=== PATIENT | female | born 1990 | race Caucasian/White ===

== ENCOUNTER 2017-06-25 00:26 | Emergency (ER) | payer MEDICAID, OTHER ==
[~2017-06-25] VITALS: Ht 154.9 cm; Wt 49.0 kg
[~2017-06-25 00:26] MED LIST: FERR325E14 PO; PREN-385 PO
[2017-06-25 00:31] VITALS: BP 112/53
[2017-06-25 01:20] LABS: BASOPHILS # (AUTO) 0.2 K/uL (0.00-0.22); BASOPHILS % (AUTO) 2.5 % (0.0-2.0); EOSINOPHILS # (AUTO) 0.1 K/uL (0-0.4); EOSINOPHILS % (AUTO) 0.7 % (0.0-4.0); HEMATOCRIT 36.1 % (36-48); HEMOGLOBIN 11.5 g/dL (12.0-16.0); LYMPHOCYTES # (AUTO) 1.9 K/uL (2.5-16.5); MEAN CORPUSCULAR HEMOGLOBIN 29 pg (27-31); MEAN CORPUSCULAR HGB CONC 32 g/dL (33-37); MEAN CORPUSCULAR VOLUME 92 fL (80-94); MONOCYTES # (AUTO) 0.6 K/uL (0.8-1.0); MONOCYTES % (AUTO) 6.7 % (1.7-9.3); NEUTROPHILS # (AUTO) 6.5 K/uL (1.8-7.7); NEUTROPHILS % (AUTO) 70.1 % (42.2-75.2); PLATELET COUNT (AUTO) 315 K/uL (140-450); RED BLOOD CELL COUNT(AUTO) 3.93 MIL/uL (4.20-5.40); RED CELL DISTRIBUTION WIDTH 12.7 % (11.6-13.7); WHITE BLOOD COUNT (AUTO) 9.3 K/uL (4.8-10.8)
[2017-06-25 01:33] LABS: ANION GAP 10.8 (8-16); CREATININE 0.6 mg/dL (0.6-1.3); POTASSIUM 3.8 mmol/L (3.5-5.1)
[2017-06-25 01:46] LABS: ALBUMIN 2.8 g/dL (3.4-5.0); THYROID STIMULATING HORMONE 0.78 uIU/mL (0.34-3.74); TOTAL BILIRUBIN 0.2 mg/dL (0.0-1.0)
[2017-06-25 02:48] VITALS: BP 112/53
== END 2017-06-25 02:48 | disposition home or self-care (01) ==
LOC: MED 00:26
DX: O26.892 Other specified pregnancy related conditions, second trimester (principal); R10.2 Pelvic and perineal pain; R10.9 Unspecified abdominal pain; Z79.899 Other long term (current) drug therapy
CPT/HCPCS: 36415; 76705; 76805; 80053; 81002; 81025; 84443; 84702; 85025; 85610; 85730; 86900; 86901; 99285; Q0092

== ENCOUNTER 2017-09-17 15:40 | Observation (INO) | payer MEDICAID ==
[~2017-09-17] VITALS: Ht 152.4 cm; Wt 56.7 kg
[2017-09-17 16:15] VITALS: BP 143/84
[2017-09-17] MEDS ORDERED: BETAMETH ACET/BETAMETH NA PH 30 MG/5 ML VIAL IM SCH (16:50)
[2017-09-17] MEDS ORDERED: AMPICILLIN 2,000 MG VIAL ONE (17:00)
[2017-09-17] MEDS ORDERED: BETAMETH ACET/BETAMETH NA PH 30 MG/5 ML VIAL IM ONE (17:00)
[2017-09-17] MEDS ORDERED: TERBUTALINE 1 MG/ML VIAL SUBQ SCH (17:35)
[2017-09-17] MEDS: LACTATED RINGERS 1,000 ML IV SCH (17:39)
[2017-09-17] MEDS: AMPICILLIN 2,000 MG in NACL 0.9% 100 ML IV SCH (17:41)
[2017-09-17] MEDS ORDERED: TERBUTALINE 1 MG/ML VIAL SUBQ ONE (17:44)
[2017-09-17 18:22] LABS: BASOPHILS # (AUTO) 0.1 K/uL (0.00-0.22); BASOPHILS % (AUTO) 1.2 % (0.0-2.0); EOSINOPHILS % (AUTO) 0.3 % (0.0-4.0); HEMATOCRIT 36.8 % (36-48); HEMOGLOBIN 12.6 g/dL (12.0-16.0); LYMPHOCYTES # (AUTO) 2.1 K/uL (2.5-16.5); LYMPHOCYTES % (AUTO) 20.4 % (20.5-51.1); MEAN CORPUSCULAR HEMOGLOBIN 31 pg (27-31); MEAN CORPUSCULAR HGB CONC 34 g/dL (33-37); MEAN CORPUSCULAR VOLUME 91 fL (80-94); MONOCYTES # (AUTO) 0.9 K/uL (0.8-1.0); MONOCYTES % (AUTO) 8.7 % (1.7-9.3); NEUTROPHILS # (AUTO) 7.1 K/uL (1.8-7.7); NEUTROPHILS % (AUTO) 69.4 % (42.2-75.2); PLATELET COUNT (AUTO) 239 K/uL (140-450); RED BLOOD CELL COUNT(AUTO) 4.03 MIL/uL (4.20-5.40); RED CELL DISTRIBUTION WIDTH 11.9 % (11.6-13.7); WHITE BLOOD COUNT (AUTO) 10.2 K/uL (4.8-10.8)
[2017-09-17 18:24] LABS: APPEARANCE,URINE CLEAR (CLEAR); BILIRUBIN,URINE NEGATIVE (NEGATIVE); BLOOD, URINE TRACE-I (NEGATIVE); COLOR,URINE YELLOW (YELLOW); LEUKOCYTE ESTERASE ,URINE NEGATIVE (NEGATIVE); NITRITE, URINE NEGATIVE (NEGATIVE); UGLUCOSE NEGATIVE (NEGATIVE)
[2017-09-17 18:30] LABS: BARBITURATE, URINE NEG. ng/ml (NEG <=200); BENZODIAZEPINE, URINE NEG. ng/mL (NEG <=200); CANNABINOID, URINE NEG. ng/mL (NEG <=50); COCAINE, URINE NEG. ng/mL (NEG <=300); OPIATE, URINE NEG. ng/mL (NEG <=2000); PHENCYCLIDINE SCREEN,URINE NEG. ng/mL (NEG <=25); RBC,URINE 3-10 (FEW) /HPF (0-5); WBC,URINE 0-5 (RARE) /HPF (0-5)
[2017-09-17 18:30] LABS: ANION GAP 9.5 (8-16); CARBON DIOXIDE 27.4 mmol/L (21-32); CREATININE 0.6 mg/dL (0.6-1.3); POTASSIUM 3.9 mmol/L (3.5-5.1)
[2017-09-17 18:36] LABS: ALBUMIN 2.6 g/dL (3.4-5.0); TOTAL BILIRUBIN 0.3 mg/dL (0.0-1.0)
[2017-09-17] MEDS: NIFEdipine 10 MG CAPLF PO SCH (18:58)
[2017-09-17] MEDS ORDERED: NIFEdipine 10 MG CAPLF ONE (22:56)
[2017-09-18] MEDS ORDERED: AMPICILLIN 2,000 MG VIAL ONE ×2 (00:04→06:36)
[2017-09-18] MEDS: AMPICILLIN 2,000 MG in NACL 0.9% 100 ML IV SCH (00:12)
[2017-09-18] MEDS ORDERED: NIFEdipine 10 MG CAPLF ONE ×2 (02:55→06:36)
[2017-09-18] MEDS: LACTATED RINGERS 1,000 ML IV SCH (03:00)
[2017-09-18] MEDS: NIFEdipine 10 MG CAPLF PO SCH (03:00)
[2017-09-18] MEDS ORDERED: BETAMETH ACET/BETAMETH NA PH 30 MG/5 ML VIAL IM ONE (08:21)
[2017-09-18] MEDS ORDERED: ERYTHROMYCIN 250 MG in NACL 0.9% 100 ML IV SCH ×2 (09:11→12:00)
--- NOTE | 2017-09-18 10:03 | NUR ---
PATIENT HAS BEEN SCREENED AND CATEGORIZED LOW NUTRITION RISK. PATIENT WILL BE SEEN WITHIN 7 DAYS OF ADMISSION. 09/24/[address]
== END 2017-09-18 10:54 | disposition short-term general hospital (02) ==
LOC: MLD 15:40
PROVIDERS: ADMIT Obstetrics & Gynecology; ATTEND Obstetrics & Gynecology
DX: O42.913 Preterm premature rupture of membranes, unspecified as to length of time between rupture and onset of labor, third trimester (principal); Z3A.32 32 weeks gestation of pregnancy
CPT/HCPCS: 36415; 76805; 80053; 80305; 81001; 85025; 86592; 86703; 86762; 86886; 86900; 86901; 87340; 87653; 96361; 96365; 96367; 96372; 96375; G0378; J0290; J0702; J1364; J3105; J7120; Q0092

== ENCOUNTER 2018-08-07 21:11 | Inpatient (IN) | payer OTHER ==
[~2018-08-07] VITALS: Ht 152.4 cm; Wt 64.0 kg
[2018-08-07] MEDS ORDERED: LACTATED RINGERS 1,000 ML IV SCH (21:45)
[2018-08-07] MEDS ORDERED: TERBUTALINE 1 MG/ML VIAL SUBQ SCH (21:45)
[2018-08-07] MEDS: LACTATED RINGERS 1,000 ML IV SCH (21:53)
[2018-08-07] MEDS ORDERED: TERBUTALINE 1 MG/ML VIAL SUBQ ONE (21:53)
[2018-08-07] MEDS ORDERED: AMPICILLIN 2,000 MG VIAL ONE (21:53)
[2018-08-07] MEDS ORDERED: BETAMETH ACET/BETAMETH NA PH 30 MG/5 ML VIAL IM ONE (21:54)
[2018-08-07] MEDS ORDERED: INFLUENZA VIRUS VACCINE QUAD 0.5 ML SYR IMVAC PRN (22:00)
[2018-08-07 22:03] VITALS: BP 132/91
[2018-08-07 22:23] LABS: BASOPHILS % (AUTO) 0.3 % (0.0-2.0); EOSINOPHILS # (AUTO) 0.1 K/uL (0-0.4); EOSINOPHILS % (AUTO) 0.6 % (0.0-4.0); HEMATOCRIT 38.5 % (36-48); HEMOGLOBIN 13.2 g/dL (12.0-16.0); LYMPHOCYTES # (AUTO) 2.6 K/uL (2.5-16.5); LYMPHOCYTES % (AUTO) 27.5 % (20.5-51.1); MEAN CORPUSCULAR HEMOGLOBIN 32 pg (27-31); MEAN CORPUSCULAR HGB CONC 34 g/dL (33-37); MEAN CORPUSCULAR VOLUME 92.1 fL (80-94); MONOCYTES # (AUTO) 0.8 K/uL (0.8-1.0); MONOCYTES % (AUTO) 8.2 % (1.7-9.3); NEUTROPHILS % (AUTO) 63.4 % (42.2-75.2); PLATELET COUNT (AUTO) 198 K/uL (140-450); RED BLOOD CELL COUNT(AUTO) 4.18 MIL/uL (4.20-5.40); RED CELL DISTRIBUTION WIDTH 12.9 % (11.6-13.7); WHITE BLOOD COUNT (AUTO) 9.5 K/uL (4.8-10.8)
[2018-08-07 22:44] LABS: APPEARANCE,URINE CLEAR (CLEAR); BILIRUBIN,URINE NEGATIVE (NEGATIVE); BLOOD, URINE NEGATIVE (NEGATIVE); COLOR,URINE YELLOW (YELLOW); LEUKOCYTE ESTERASE ,URINE NEGATIVE (NEGATIVE); NITRITE, URINE NEGATIVE (NEGATIVE); PH,URINE 6.5 (5.0-9.0); RBC,URINE 0-5 (RARE) /HPF (0-5); UGLUCOSE NEGATIVE (NEGATIVE); WBC,URINE 0-5 (RARE) /HPF (0-5)
[2018-08-07 23:24] LABS: BARBITURATE, URINE NEG. ng/ml (NEG <=200); BENZODIAZEPINE, URINE NEG. ng/mL (NEG <=200); COCAINE, URINE NEG. ng/mL (NEG <=300); OPIATE, URINE NEG. ng/mL (NEG <=2000)
[2018-08-07 23:28] LABS: PROTHROMBIN TIME 8.6 secs (10.8-13.4)
[2018-08-07 23:36] LABS: CANNABINOID, URINE NEG. ng/mL (NEG <=50); PHENCYCLIDINE SCREEN,URINE NEG. ng/mL (NEG <=25)
[2018-08-08] MEDS ORDERED: NALBUPHINE 10 MG/ML AMP ONE (00:32)
[2018-08-08] MEDS ORDERED: TERBUTALINE 2.5 MG TAB ONE ×4 (00:33→13:07)
[2018-08-08] MEDS ORDERED: NALBUPHINE 10 MG/ML AMP IVP SCH (01:30)
[2018-08-08] MEDS ORDERED: AMPICILLIN 2,000 MG VIAL ONE ×3 (01:42→07:59)
[2018-08-08] MEDS: AMPICILLIN 2,000 MG in NACL 0.9% 100 ML IV SCH ×3 (02:00→10:18)
[2018-08-08] MEDS: TERBUTALINE 2.5 MG TAB PO SCH ×3 (04:32→13:02)
[2018-08-08] MEDS: LACTATED RINGERS 1,000 ML IV SCH (08:11)
--- NOTE | 2018-08-08 08:37 | NUR ---
PATIENT HAS BEEN SCREENED AND CATEGORIZED LOW NUTRITION RISK. PATIENT WILL BE SEEN WITHIN 7 DAYS OF ADMISSION. 08/14/[address]
[2018-08-08] MEDS ORDERED: BETAMETH ACET/BETAMETH NA PH 30 MG/5 ML VIAL IM SCH (09:00)
[2018-08-08] MEDS ORDERED: BETAMETH ACET/BETAMETH NA PH 30 MG/5 ML VIAL IM ONE (10:49)
[2018-08-08 14:10] VITALS: BP 114/54
== END 2018-08-08 14:45 | disposition home or self-care (01) | DRG 566 ==
LOC: MLD 21:11
PROVIDERS: ADMIT Obstetrics & Gynecology; ATTEND Obstetrics & Gynecology
DX: O26.893 Other specified pregnancy related conditions, third trimester (principal); F19.10 Other psychoactive substance abuse, uncomplicated; R10.9 Unspecified abdominal pain; O99.323 Drug use complicating pregnancy, third trimester; Z3A.31 31 weeks gestation of pregnancy
CPT/HCPCS: 36415; 76805; 80305; 81001; 85025; 85379; 85384; 85610; 85730; J0290; J0702; J2300; J3105; J7120; Q0092

== ENCOUNTER 2018-08-09 12:05 | Inpatient (IN) | payer OTHER ==
[~2018-08-09] VITALS: Ht 152.4 cm; Wt 65.3 kg
[2018-08-09 12:48] VITALS: BP 117/73
[2018-08-09] MEDS ORDERED: TERBUTALINE 1 MG/ML VIAL SUBQ ONE (13:27)
[2018-08-09] MEDS ORDERED: TERBUTALINE 1 MG/ML VIAL SUBQ SCH (13:30)
[2018-08-09] MEDS: TERBUTALINE 2.5 MG TAB PO PRN ×3 (14:19→22:36)
[2018-08-09] MEDS ORDERED: TERBUTALINE 2.5 MG TAB ONE ×3 (14:21→22:30)
[2018-08-09 14:57] LABS: EOSINOPHILS % (AUTO) 0.1 % (0.0-4.0); HEMOGLOBIN 12.1 g/dL (12.0-16.0); LYMPHOCYTES # (AUTO) 1.7 K/uL (2.5-16.5); MEAN CORPUSCULAR HEMOGLOBIN 31 pg (27-31); MEAN CORPUSCULAR HGB CONC 34 g/dL (33-37); MONOCYTES % (AUTO) 6.5 % (1.7-9.3); NEUTROPHILS # (AUTO) 12.9 K/uL (1.8-7.7); NEUTROPHILS % (AUTO) 82.4 % (42.2-75.2); PLATELET COUNT (AUTO) 209 K/uL (140-450); RED BLOOD CELL COUNT(AUTO) 3.87 MIL/uL (4.20-5.40); RED CELL DISTRIBUTION WIDTH 13.4 % (11.6-13.7); WHITE BLOOD COUNT (AUTO) 15.7 K/uL (4.8-10.8)
[2018-08-09] MEDS: LACTATED RINGERS 1,000 ML IV SCH ×2 (14:59→22:36)
[2018-08-09 15:28] LABS: PROTHROMBIN TIME 8.5 secs (10.8-13.4)
[2018-08-09 16:54] LABS: BARBITURATE, URINE NEG. ng/ml (NEG <=200); BENZODIAZEPINE, URINE NEG. ng/mL (NEG <=200); CANNABINOID, URINE NEG. ng/mL (NEG <=50); COCAINE, URINE NEG. ng/mL (NEG <=300); OPIATE, URINE NEG. ng/mL (NEG <=2000); PHENCYCLIDINE SCREEN,URINE NEG. ng/mL (NEG <=25)
[2018-08-09] MEDS ORDERED: AMPICILLIN 2,000 MG VIAL ONE (18:27)
[2018-08-09] MEDS: AMPICILLIN 2,000 MG in NACL 0.9% 100 ML IV SCH ×2 (19:00→23:57)
[2018-08-09 19:38] LABS: APPEARANCE,URINE CLEAR (CLEAR); BILIRUBIN,URINE NEGATIVE (NEGATIVE); BLOOD, URINE NEGATIVE (NEGATIVE); COLOR,URINE YELLOW (YELLOW); PH,URINE 6.5 (5.0-9.0); UGLUCOSE NEGATIVE (NEGATIVE)
[2018-08-09 19:39] LABS: LEUKOCYTE ESTERASE ,URINE NEGATIVE (NEGATIVE); NITRITE, URINE NEGATIVE (NEGATIVE)
[2018-08-09 19:40] VITALS: BP 125/67
[2018-08-10] MEDS ORDERED: TERBUTALINE 2.5 MG TAB ONE ×4 (02:21→18:15)
[2018-08-10] MEDS: TERBUTALINE 2.5 MG TAB PO PRN ×2 (02:25→06:37)
[2018-08-10] MEDS: AMPICILLIN 2,000 MG in NACL 0.9% 100 ML IV SCH ×2 (06:00→12:47)
--- NOTE | 2018-08-10 08:04 | NUR ---
PATIENT HAS BEEN SCREENED AND CATEGORIZED LOW NUTRITION RISK. PATIENT WILL BE SEEN WITHIN 7 DAYS OF ADMISSION. 08/16/[address]
[2018-08-10] MEDS: LACTATED RINGERS 1,000 ML IV SCH ×2 (08:27→17:33)
[2018-08-10 10:04] LABS: PROTHROMBIN TIME 8.3 secs (10.8-13.4)
[2018-08-10] MEDS: TERBUTALINE 2.5 MG TAB PO SCH ×2 (12:48→18:27)
[2018-08-10] MEDS ORDERED: AMPICILLIN 2,000 MG in NACL 0.9% 100 ML IV SCH (18:45)
[2018-08-10 19:34] VITALS: BP 117/72
[2018-08-11] MEDS ORDERED: TERBUTALINE 2.5 MG TAB ONE ×4 (00:06→17:09)
[2018-08-11] MEDS ORDERED: AMPICILLIN 2,000 MG VIAL ONE ×3 (00:06→12:03)
[2018-08-11] MEDS: TERBUTALINE 2.5 MG TAB PO SCH ×2 (00:11→06:22)
[2018-08-11] MEDS: AMPICILLIN 2,000 MG in NACL 0.9% 100 ML IV SCH ×3 (06:23)
[2018-08-11] MEDS: LACTATED RINGERS 1,000 ML IV SCH (10:10)
[2018-08-12] MEDS ORDERED: TERB2.5T6 PO (05:39)
== END 2018-08-11 17:37 | disposition home or self-care (01) | DRG 563 ==
LOC: OBSVTOIN 12:05 → MLD 12:05
PROVIDERS: ADMIT Obstetrics & Gynecology; ATTEND Obstetrics & Gynecology
DX: O60.03 Preterm labor without delivery, third trimester (principal); Z3A.35 35 weeks gestation of pregnancy
CPT/HCPCS: 36415; 76815; 80305; 81003; 85025; 85379; 85384; 85610; 85730; 86592; 86886; 86900; 86901; 87653-90; J0290; J3105; Q0092

== ENCOUNTER 2018-08-12 02:30 | Inpatient (IN) | payer OTHER ==
[~2018-08-12] VITALS: Ht 152.4 cm; Wt 65.3 kg
[2018-08-12 02:34] VITALS: BP 140/97
[2018-08-12] MEDS ORDERED: TERBUTALINE 1 MG/ML VIAL SUBQ ONE ×2 (02:52→06:00)
[2018-08-12] MEDS ORDERED: LIDOCAINE 1% 50 ML ONE (02:53)
[2018-08-12] MEDS ORDERED: OXYTOCIN 10 UNITS/ML VIAL ONE ×2 (02:53→03:16)
[2018-08-12] MEDS ORDERED: LACTATED RINGERS 1,000 ML IV SCH (03:00)
[2018-08-12] MEDS ORDERED: OXYTOCIN 20 UNITS/LR PREMIX 1,000 ML IV ONE (03:55)
[2018-08-12] MEDS ORDERED: BISACODYL 5 MG TABEC PO PRN (04:35)
[2018-08-12] MEDS ORDERED: DOCUSATE SODIUM 100 MG GELCAP PO PRN (04:35)
[2018-08-12] MEDS ORDERED: ACETAMINOPHEN 325 MG TAB PO PRN (04:35)
[2018-08-12] MEDS ORDERED: MEASLES, MUMPS, AND RUBELLA 1 VIAL SQVAC PRN (04:35)
[2018-08-12] MEDS ORDERED: OXYTOCIN 20 UNITS in LACTATED RINGERS 1,000 ML IV SCH (04:55)
[2018-08-12] MEDS ORDERED: LIDOCAINE 1% 500 MG/50 ML VIAL INJ SCH (04:55)
[2018-08-12] MEDS ORDERED: OXYTOCIN 10 UNITS/ML VIAL IM ONE (04:55)
[2018-08-12] MEDS ORDERED: INFLUENZA VIRUS VACCINE QUAD 0.5 ML SYR IMVAC PRN ×2 (05:25→23:10)
[2018-08-12] MEDS ORDERED: TERB2.5T6 PO (05:39)
[2018-08-12] MEDS: IBUPROFEN 600 MG TAB PO PRN ×2 (05:44→17:10)
--- NOTE | 2018-08-12 11:36 | NUR ---
PATIENT HAS BEEN SCREENED AND CATEGORIZED LOW NUTRITION RISK. PATIENT WILL BE SEEN WITHIN 7 DAYS OF ADMISSION. 08/19/18 CELINA SPARKS MBA, RD
[2018-08-13] MEDS: IBUPROFEN 600 MG TAB PO PRN ×2 (00:53→14:34)
[2018-08-13 13:19] LABS: BASOPHILS % (AUTO) 0.3 % (0.0-2.0); EOSINOPHILS # (AUTO) 0.1 K/uL (0-0.4); EOSINOPHILS % (AUTO) 0.9 % (0.0-4.0); HEMATOCRIT 36.7 % (36-48); HEMOGLOBIN 12.4 g/dL (12.0-16.0); LYMPHOCYTES # (AUTO) 1.5 K/uL (2.5-16.5); LYMPHOCYTES % (AUTO) 13.4 % (20.5-51.1); MEAN CORPUSCULAR HEMOGLOBIN 31 pg (27-31); MEAN CORPUSCULAR HGB CONC 34 g/dL (33-37); MEAN CORPUSCULAR VOLUME 92.5 fL (80-94); MONOCYTES # (AUTO) 0.6 K/uL (0.8-1.0); MONOCYTES % (AUTO) 5.6 % (1.7-9.3); NEUTROPHILS # (AUTO) 9.1 K/uL (1.8-7.7); NEUTROPHILS % (AUTO) 79.8 % (42.2-75.2); PLATELET COUNT (AUTO) 224 K/uL (140-450); RED BLOOD CELL COUNT(AUTO) 3.96 MIL/uL (4.20-5.40); WHITE BLOOD COUNT (AUTO) 11.4 K/uL (4.8-10.8)
[2018-08-14] MEDS: IBUPROFEN 600 MG TAB PO PRN ×2 (01:21→15:21)
== END 2018-08-14 16:45 | disposition home or self-care (01) | DRG 560 ==
LOC: MLD 02:30 → MFCC 07:27
PROVIDERS: ADMIT Obstetrics & Gynecology; ATTEND Obstetrics & Gynecology
PROC: 10E0XZZ Delivery of Products of Conception, External Approach (ICD-10-PCS; principal; 2018-08-12)
PROC: 3E02340 Introduction of Influenza Vaccine into Muscle, Percutaneous Approach (ICD-10-PCS; 2018-08-12)
DX: O42.913 Preterm premature rupture of membranes, unspecified as to length of time between rupture and onset of labor, third trimester (principal); O69.81X0 Labor and delivery complicated by cord around neck, without compression, not applicable or unspecified; Z37.0 Single live birth; Z3A.35 35 weeks gestation of pregnancy; Z23 Encounter for immunization
CPT/HCPCS: 36415; 59409; 85025; 87081; 90658; C1758; J2001; J2590; J3105; J7120

== ENCOUNTER 2020-12-11 13:28 | Emergency (ER) | payer OTHER ==
[~2020-12-11] VITALS: Ht 154.9 cm; Wt 50.8 kg
[2020-12-11 13:35] VITALS: BP 136/97
--- NOTE | 2020-12-11 13:54 | NUR ---
LAB AT BEDSIDE.
[2020-12-11 14:03] LABS: APPEARANCE,URINE CLEAR (CLEAR); BILIRUBIN,URINE NEGATIVE (NEGATIVE); BLOOD, URINE TRACE-I (NEGATIVE); COLOR,URINE YELLOW (YELLOW); LEUKOCYTE ESTERASE ,URINE NEGATIVE (NEGATIVE); NITRITE, URINE NEGATIVE (NEGATIVE); UGLUCOSE NEGATIVE (NEGATIVE)
--- NOTE | 2020-12-11 14:03 | NUR ---
Ultrasound at bedside.
--- NOTE | 2020-12-11 14:04 | NUR ---
30/F c/o vaginal spotting that started today. Pt states she had a positive test in September. . LMP 09/03/2020. Pt denies any pain at this time. Denies N/V/D.
[2020-12-11 14:05] LABS: BASOPHILS # (AUTO) 0.1 K/uL (0.00-0.22); BASOPHILS % (AUTO) 0.8 % (0.0-2.0); EOSINOPHILS # (AUTO) 0.1 K/uL (0-0.4); EOSINOPHILS % (AUTO) 0.7 % (0.0-4.0); HEMATOCRIT 39.8 % (36-48); HEMOGLOBIN 13.8 g/dL (12.0-16.0); LYMPHOCYTES # (AUTO) 1.7 K/uL (2.5-16.5); LYMPHOCYTES % (AUTO) 21.1 % (20.5-51.1); MEAN CORPUSCULAR HEMOGLOBIN 32 pg (27-31); MEAN CORPUSCULAR HGB CONC 35 g/dL (33-37); MONOCYTES # (AUTO) 0.5 K/uL (0.8-1.0); MONOCYTES % (AUTO) 6.7 % (1.7-9.3); NEUTROPHILS # (AUTO) 5.7 K/uL (1.8-7.7); NEUTROPHILS % (AUTO) 70.7 % (42.2-75.2); PLATELET COUNT (AUTO) 277 K/uL (140-450); RED BLOOD CELL COUNT(AUTO) 4.38 MIL/uL (4.20-5.40); RED CELL DISTRIBUTION WIDTH 12.5 % (11.6-13.7); WHITE BLOOD COUNT (AUTO) 8.1 K/uL (4.8-10.8)
[2020-12-11 14:11] LABS: WBC,URINE 0-5 /HPF (0-5)
--- NOTE | 2020-12-11 15:45 | NUR ---
PING CROWE AT BEDSIDE EXPLAINING DC INSTRUCTIONS
[2020-12-11 16:03] VITALS: BP 134/92
--- NOTE | 2020-12-11 16:03 | NUR ---
Patient discharged with v/s stable. Written and verbal after care instructions given and explained. Patient verbalized understanding. Ambulatory with steady gait. All questions addressed prior to discharge. Advised to follow up with PMD.
== END 2020-12-11 16:03 | disposition home or self-care (01) ==
LOC: MED 13:28
DX: O36.4XX1 Maternal care for intrauterine death, fetus 1 (principal); O03.9 Complete or unspecified spontaneous abortion without complication; Z79.899 Other long term (current) drug therapy
CPT/HCPCS: 36415; 76801; 81001; 81025; 84702; 85025; 86900; 86901; 99284

== ENCOUNTER 2020-12-28 14:18 | Emergency (ER) | payer OTHER ==
[~2020-12-28] VITALS: Ht 154.9 cm; Wt 52.2 kg
[2020-12-28 14:23] VITALS: BP 117/84
--- NOTE | 2020-12-28 14:29 | NUR ---
CECILIO. HANDED ON URINE CUP.
--- NOTE | 2020-12-28 14:42 | NUR ---
PT TAKEN TO US.
--- NOTE | 2020-12-28 15:04 | NUR ---
ERMD AT BEDSIDE EVALUATING PT.
--- NOTE | 2020-12-28 15:10 | NUR ---
30 YEAR OLD FEMALE COMPLAINS OF TISSUE COMING FROM VAGINAL AREA X TODAY. PT STATES THAT SHE HAS HISTORY OF 3 MISCARRIAGES, AND THAT SHE WAS PRIOR TO TODAY. PT DENIES PAIN, DENIES CRAMPING. PT AOX4, BREATHING EVEN AND UNLABORED, SKIN WARM AND DRY. BED IN LOWEST POSITION, LOCKED, BED RAIL UPX1. PMH - DENIES ALLERGIES - NKA
--- NOTE | 2020-12-28 16:30 | NUR ---
PT ALERT AND AWAKE, BREATHING EVEN AND UNLABORED. NO DISTRESS NOTED.
[2020-12-28] MEDS ORDERED: IBUP-2213 PO (17:37)
[2020-12-28] MEDS ORDERED: [UNRECOGNIZED DRUG - CODE] PO (17:37)
--- NOTE | 2020-12-28 17:40 | NUR ---
Patient discharged with v/s stable. Written and verbal after care instructions about miscarriage given and explained. Patient alert, oriented and verbalized understanding of instructions. Ambulatory with steady gait. All questions addressed prior to discharge. ID band removed. Patient advised to follow up with PMD. Rx of ibuprofen, misoprostol given. Patient educated on indication of medication including possible reaction and side effects. Opportunity to ask questions provided and answered.
[2020-12-28 17:43] VITALS: BP 117/84
== END 2020-12-28 17:40 | disposition home or self-care (01) ==
LOC: MED 14:18
DX: O03.9 Complete or unspecified spontaneous abortion without complication (principal)
CPT/HCPCS: 76817; 76856; 99285

== ENCOUNTER 2022-05-09 15:28 | Observation (INO) | payer OTHER ==
[~2022-05-09 15:28] MED LIST changes: +IBUP-2213 PO; +[UNRECOGNIZED DRUG - CODE] PO
--- NOTE | 2022-05-09 15:48 | NUR ---
PATIENT HAS BEEN SCREENED AND CATEGORIZED LOW NUTRITION RISK. PATIENT WILL BE SEEN WITHIN 7 DAYS OF ADMISSION. 05/09/22-05/15/[address]
== END 2022-05-09 15:35 | disposition left against medical advice (07) ==
LOC: MLD 15:28
PROVIDERS: ADMIT Obstetrics & Gynecology; ATTEND Obstetrics & Gynecology
DX: O26.899 Other specified pregnancy related conditions, unspecified trimester (principal); R10.9 Unspecified abdominal pain; Z3A.00 Weeks of gestation of pregnancy not specified
CPT/HCPCS: G0378; G0379

== ENCOUNTER 2022-06-12 03:28 | Emergency (ER) | payer OTHER ==
[~2022-06-12] VITALS: Ht 154.9 cm; Wt 57.3 kg
[2022-06-12 03:46] VITALS: BP 149/85
--- NOTE | 2022-06-12 03:51 | NUR ---
tiburcio dias assessed pt in triage
[2022-06-12 04:14] VITALS: BP 149/85
== END 2022-06-12 04:14 | disposition home or self-care (01) ==
LOC: MED 03:28
DX: O90.89 Other complications of the puerperium, not elsewhere classified (principal); N89.8 Other specified noninflammatory disorders of vagina; Z79.899 Other long term (current) drug therapy
CPT/HCPCS: 99281